=== PATIENT | male | born 1970 | race African-American/Black ===

== ENCOUNTER 2018-04-20 05:26 | Emergency (ER) | payer OTHER ==
[~2018-04-20] VITALS: Ht 170.2 cm; Wt 192.8 kg
[~2018-04-20 05:26] MED LIST: CAPOTEN12.5 MG; DICLOFENAC SODI50 MG PO
[2018-04-20] MEDS ORDERED: COZAAR50 MG (05:41)
[2018-04-20] MEDS ORDERED: SYNTHROID50 MCG (05:41)
[2018-04-20] MEDS ORDERED: MEDROLPACK PO (11:10)
[2018-04-20] MEDS ORDERED: ZITHROMAX500 MG PO (11:15)
[2018-04-20] MEDS ORDERED: TUSSI PRES-B L120 M1 PO (11:15)
== END 2018-04-20 11:24 | disposition home or self-care (01) ==
LOC: ER 05:26
DX: B34.9 Viral infection, unspecified (principal)

== ENCOUNTER 2018-04-24 20:13 | Emergency (ER) | payer OTHER ==
[~2018-04-24] VITALS: Ht 170.2 cm; Wt 192.8 kg
[~2018-04-24 20:13] MED LIST changes: +COZAAR50 MG; +MEDROLPACK PO; +SYNTHROID50 MCG; +TUSSI PRES-B L120 M1 PO; +ZITHROMAX500 MG PO
== END 2018-04-24 22:17 | disposition home or self-care (01) ==
LOC: ER 20:13
DX: J45.998 Other asthma (principal)

== ENCOUNTER 2020-12-15 09:54 | Emergency (ER) | payer OTHER ==
[~2020-12-15] VITALS: Ht 170.2 cm; Wt 204.1 kg
[2020-12-15] MEDS ORDERED: AMOX-CLAV 875-1 EACH PO (13:49)
== END 2020-12-15 14:18 | disposition home or self-care (01) ==
LOC: ER 09:54
DX: B34.9 Viral infection, unspecified (principal); E03.9 Hypothyroidism, unspecified; I10 Essential (primary) hypertension; Z03.818 Encounter for observation for suspected exposure to other biological agents ruled out

== ENCOUNTER 2022-12-27 13:22 | Emergency (ER) | payer OTHER ==
[~2022-12-27] VITALS: Ht 170.2 cm; Wt 188.2 kg
[~2022-12-27 13:22] MED LIST changes: +AMOX-CLAV 875-1 EACH PO
[2022-12-27] MEDS ORDERED: CEFDINIR300 MG (14:19)
[2022-12-27] MEDS ORDERED: NORVASC5 MG (14:20)
[2022-12-27] MEDS ORDERED: COZAAR25 MG (14:20)
[2022-12-27] MEDS ORDERED: SYNTHROID112 MCG (14:20)
[2022-12-27 17:02] LABS: HEMOGLOBIN 14.8 g/dL (13-16.00); MEAN CELL VOLUME 90.9 fL (80.0-100.00); MEAN CORPUSCULAR HEMOGLOBIN 30.5 pg (27.00-32.0); MEAN CORPUSCULAR HGB CONC 33.6 g/dl (32.0-36.0); PLATELET COUNT 251 K/uL (150-450); RED BLOOD COUNT 4.84 M/uL (4.00-6.00); RED CELL DISTRIBUTION WIDTH 13.6 % (11.5-14.5)
[2022-12-27 17:15] LABS: CALCIUM 9.4 mg/dL (8.5-10.1); CREATININE SERUM 1.15 mg/dL (0.70-1.30); GFR 67.04; POTASSIUM 4.25 mEq/L (3.5-5.1)
[2022-12-27 18:05] LABS: PH,URINE 7.5 (5.0-8.0); URINE APPEARANCE Clear; URINE BILIRRUBIN Negative (NEGATIVE); URINE BLOOD Small; URINE COLOR Yellow; URINE GLUCOSE Negative (NEGATIVE); URINE LEUKOCYTE Negative; URINE NITRATE Negative; URINE PROTEIN Negative (NEGATIVE); URINE UROBILINOGEN 0.2 E.U./dl
[2022-12-27 18:10] LABS: URINE BACTERIA 8.8 uL (0.0-1933); URINE WBC 2.6 uL (0.0-23.2)
[2022-12-27 18:22] LABS: URINE EPITHELIAL CELLS 1.3 uL (0.0-38.8)
[2022-12-27 22:42] LABS: HEMATOCRIT 43.1 % (39.0-48.0); HEMOGLOBIN 14.2 g/dL (13-16.00); MEAN CELL VOLUME 91.5 fL (80.0-100.00); MEAN CORPUSCULAR HEMOGLOBIN 30.1 pg (27.00-32.0); MEAN CORPUSCULAR HGB CONC 32.9 g/dl (32.0-36.0); PLATELET COUNT 258 K/uL (150-450); RED BLOOD COUNT 4.71 M/uL (4.00-6.00); RED CELL DISTRIBUTION WIDTH 13.6 % (11.5-14.5)
== END 2022-12-28 03:58 | disposition home or self-care (01) ==
LOC: ER 13:22
PROVIDERS: Emergency Medicine
DX: R10.13 Epigastric pain (principal); L03.116 Cellulitis of left lower limb; Z20.822 Contact with and (suspected) exposure to COVID-19

== ENCOUNTER 2022-12-29 16:52 | Inpatient (IN) | payer OTHER ==
[~2022-12-29] VITALS: Ht 170.2 cm; Wt 188.2 kg
[~2022-12-29 16:52] MED LIST changes: +CEFDINIR300 MG; +COZAAR25 MG; +NORVASC5 MG; +SYNTHROID112 MCG
[2022-12-29 18:22] LABS: HEMATOCRIT 41.6 % (39.0-48.0); MEAN CELL VOLUME 89.8 fL (80.0-100.00); MEAN CORPUSCULAR HEMOGLOBIN 30.2 pg (27.00-32.0); MEAN CORPUSCULAR HGB CONC 33.7 g/dl (32.0-36.0); PLATELET COUNT 206 K/uL (150-450); RED BLOOD COUNT 4.63 M/uL (4.00-6.00); RED CELL DISTRIBUTION WIDTH 13.8 % (11.5-14.5)
[2022-12-29 18:24] LABS: PH,URINE 5.5 (5.0-8.0); URINE APPEARANCE Cloudy; URINE BILIRRUBIN Negative (NEGATIVE); URINE BLOOD Moderate; URINE COLOR Dark Yellow; URINE GLUCOSE Negative (NEGATIVE); URINE LEUKOCYTE Negative; URINE NITRATE Negative
[2022-12-29 18:27] LABS: URINE BACTERIA 11.3 uL (0.0-1933); URINE EPITHELIAL CELLS 26.8 uL (0.0-38.8); URINE RBC 24.1 uL (0.0-20.8); URINE WBC 12.9 uL (0.0-23.2)
[2022-12-29 18:39] LABS: URINE PROTEIN 100 (NEGATIVE)
[2022-12-29 18:55] LABS: CALCIUM 8.7 mg/dL (8.5-10.1); CREATININE SERUM 1.14 mg/dL (0.70-1.30); GFR 67.72; POTASSIUM 3.61 mEq/L (3.5-5.1)
[2022-12-30 03:17] LABS: INR 1.12; PROTHROMBIN TIME 11.7 SECONDS (9.0-11.5)
[2022-12-30 03:19] LABS: D DIMER 1.06 MG/L; PARTIAL THROMBOPLASTIN TIME 27.6 SECONDS (22.0-34.0)
[2022-12-31 07:04] LABS: HEMATOCRIT 36.2 % (39.0-48.0); HEMOGLOBIN 12.4 g/dL (13-16.00); MEAN CELL VOLUME 89.6 fL (80.0-100.00); MEAN CORPUSCULAR HEMOGLOBIN 30.6 pg (27.00-32.0); MEAN CORPUSCULAR HGB CONC 34.1 g/dl (32.0-36.0); PLATELET COUNT 184 K/uL (150-450); RED BLOOD COUNT 4.04 M/uL (4.00-6.00); RED CELL DISTRIBUTION WIDTH 13.8 % (11.5-14.5)
[2022-12-31 08:23] LABS: ALBUMIN 2.4 gm/dL (3.4-5.0); BILIRUBIN TOTAL 0.41 mg/dL (0.3-1.2); CALCIUM 7.7 mg/dL (8.5-10.1); CREATININE SERUM 0.8 mg/dL (0.70-1.30); GFR 101.91; GLOBULINA 4.1 G/DL (2.4-3.5); MAGNESIUM 2.4 mg/dL (1.8-2.4); PHOSPHOROUS 2.9 mg/dL (2.5-4.9); POTASSIUM 3.67 mEq/L (3.5-5.1); TOTAL PROTEIN 6.5 gm/dL (6.4-8.2)
[2022-12-31 08:41] LABS: C-REACTIVE PROTEIN 17.2 MG/DL (0.00-0.29); TSH 6.21 uIU/mL (0.358-3.74)
[2023-01-02 05:42] LABS: HEMATOCRIT 36.6 % (39.0-48.0); HEMOGLOBIN 12.6 g/dL (13-16.00); MEAN CELL VOLUME 90.7 fL (80.0-100.00); MEAN CORPUSCULAR HEMOGLOBIN 31.1 pg (27.00-32.0); MEAN CORPUSCULAR HGB CONC 34.3 g/dl (32.0-36.0); PLATELET COUNT 253 K/uL (150-450); RED BLOOD COUNT 4.04 M/uL (4.00-6.00); RED CELL DISTRIBUTION WIDTH 13.4 % (11.5-14.5)
[2023-01-02 06:01] LABS: ALBUMIN 2.5 gm/dL (3.4-5.0); BILIRUBIN TOTAL 0.36 mg/dL (0.3-1.2); CALCIUM 7.9 mg/dL (8.5-10.1); CREATININE SERUM 0.65 mg/dL (0.70-1.30); GFR 129.51; GLOBULINA 4.3 G/DL (2.4-3.5); MAGNESIUM 2.5 mg/dL (1.8-2.4); PHOSPHOROUS 2.5 mg/dL (2.5-4.9); POTASSIUM 3.98 mEq/L (3.5-5.1); TOTAL PROTEIN 6.8 gm/dL (6.4-8.2)
[2023-01-02 06:51] LABS: C-REACTIVE PROTEIN 15.1 MG/DL (0.00-0.29)
[2023-01-04 07:49] LABS: HEMATOCRIT 36.7 % (39.0-48.0); HEMOGLOBIN 12.7 g/dL (13-16.00); MEAN CELL VOLUME 89.2 fL (80.0-100.00); MEAN CORPUSCULAR HEMOGLOBIN 30.8 pg (27.00-32.0); MEAN CORPUSCULAR HGB CONC 34.5 g/dl (32.0-36.0); PLATELET COUNT 360 K/uL (150-450); RED BLOOD COUNT 4.11 M/uL (4.00-6.00); RED CELL DISTRIBUTION WIDTH 13.8 % (11.5-14.5)
[2023-01-04 08:38] LABS: ALBUMIN 2.5 gm/dL (3.4-5.0); BILIRUBIN TOTAL 0.36 mg/dL (0.3-1.2); CALCIUM 8.2 mg/dL (8.5-10.1); CREATININE SERUM 0.83 mg/dL (0.70-1.30); GFR 97.67; GLOBULINA 4.4 G/DL (2.4-3.5); POTASSIUM 3.88 mEq/L (3.5-5.1); TOTAL PROTEIN 6.9 gm/dL (6.4-8.2)
[2023-01-04] MEDS ORDERED: MORGIDOX100 MG PO (14:54)
[2023-01-04] MEDS ORDERED: AMOX-CLAV 875-1 EACH PO (14:55)
== END 2023-01-04 15:08 | disposition home or self-care (01) | DRG 602 ==
LOC: ER 16:53 → MEDI 23:29
PROVIDERS: General Practice; Internal Medicine Infectious Disease; Nurse Practitioner Family; ADMIT Internal Medicine; ATTEND Internal Medicine
PROC: B54DZZZ Ultrasonography of Bilateral Lower Extremity Veins (ICD-10-PCS; principal; 2022-12-29)
DX: L03.116 Cellulitis of left lower limb (principal); A41.9 Sepsis, unspecified organism; I87.2 Venous insufficiency (chronic) (peripheral); E03.9 Hypothyroidism, unspecified; I10 Essential (primary) hypertension; E66.9 Obesity, unspecified; R50.9 Fever, unspecified